=== PATIENT | male | born 1990 | race African-American/Black ===

== ENCOUNTER 2024-11-17 15:33 | Emergency (ER) | payer OTHER ==
[~2024-11-17] VITALS: Ht 182.9 cm; Wt 108.9 kg
[2024-11-17] MEDS ORDERED: FAMOTIDINE 20 MG/ 2 ML VIAL IV ONE (15:45)
[2024-11-17] MEDS ORDERED: diphenhydrAMINE HCL 50 MG/ML VIAL IV ONE (15:45)
[2024-11-17] MEDS ORDERED: PREDNISONE20 MG PO (16:55)
[2024-11-17] MEDS ORDERED: EPIPEN 2-P0.3 MG/0.3 IM (16:55)
[2024-11-17 17:08] VITALS: BP 141/77
== END 2024-11-17 17:08 | disposition home or self-care (01) ==
LOC: ED 15:33
DX: T78.2XXA Anaphylactic shock, unspecified, initial encounter (principal)
CPT/HCPCS: 96374; 96375; 99284-25; J1200